=== PATIENT | female | born 1990 | race Caucasian/White ===

== ENCOUNTER 2017-05-09 11:25 | Emergency (ER) | payer OTHER ==
[2017-05-09 11:52] VITALS: BP 140/53; PULSE 112; TEMP 100.2; BMI 31.4
--- NOTE | 2017-05-09 12:48 | PDOC ---
History of Present Illness - General Chief Complaint: Respiratory Stated Complaint: FEVER, DIZZINESS Time Seen by Provider: 05/09/17 12:35 History Source: Patient, Family Exam Limitations: No Limitations - History of Present Illness Initial Comments: 05/09/17 12:44 Patient came for evaluation of 2-3 days of low-grade fevers and infrequent nonproductive cough, and lower abdominal pain. Denies dysuria and states that pain is spasmodic. Has taken no medication for relief Timing/Duration: reports: just prior to arrival Severity: reports: moderate Past History - Travel Traveled outside of the country in the last 30 days: No Close contact w/someone who was outside of country & ill: No - Past Medical History Allergies/Adverse Reactions: Allergies Allergy/AdvReac Type Severity Reaction Status Date / Time No Known Allergies Allergy Verified 05/09/17 11:49 Home Medications: Ambulatory Orders NK [No Known Home Medication] 05/09/17 Other medical history: Denies - Immunization History Immunization Up to Date: Yes - Psycho/Social/Smoking Cessation Hx Suicidal Ideation: No Smoking History: Never smoked Have you smoked in the past 12 months: No Information on smoking cessation initiated: No Hx Alcohol Use: No Drug/Substance Use Hx: No Substance Use Type: None Review of Systems - Review of Systems Able to Perform ROS?: Yes Is the patient limited Citizen [place] proficient: Yes Constitutional: Yes: Symptoms Reported, See HPI, Fever, Malaise. No: Loss of Appetite HEENTM: Yes: Symptoms Reported, See HPI, Nose Congestion, Throat Pain Respiratory: Yes: Symptoms reported, See HPI, Cough : No: Symptoms Reported Musculoskeletal: Yes: Symptoms Reported, See HPI Integumentary: Yes: Symptoms Reported All Other Systems: Reviewed and Negative *Physical Exam - Vital Signs Last Vital Signs Temp Pulse Resp BP Pulse Ox 100.2 F H 112 H 16 140/53 100 05/09/17 11:48 05/09/17 11:48 05/09/17 11:48 05/09/17 11:48 05/09/17 11:48 - Physical Exam General Appearance: Yes: Nourished, Appropriately Dressed, Apparent Distress HEENT: positive: MAI, TMs Normal, Pharynx Normal (redness, swelling or exudate) , Rhinorrhea (clear), Sinus Tenderness (mild ) Neck: positive: Supple. negative: Lymphadenopathy (R), Lymphadenopathy (L) Respiratory/Chest: positive: Lungs Clear Gastrointestinal/Abdominal: positive: Soft. 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 intact, Fully Oriented, Normal Response, Motor Strength 5/5 Progress Note - Progress Note Progress Note: Rest, drink lots of fluids: Teas, water, soups, Pedialyte Saltwater gargles Steamy showers/seem to face break up mucus Avoid contact with others until fevers and cough resolved Lots of handwashing and good hygiene Continue [id number] medications for symptomatic relief Tylenol or Motrin for fever and pain Followup with private physician in one to 2 days as needed Return to emergency department for worsened symptoms, fevers, dehydration *DC/Admit/Observation/Transfer Diagnosis at time of Disposition: Viral upper respiratory illness - Discharge Dispostion Disposition: HOME Condition at time of disposition: Stable Admit: No - Referrals Referrals: Paco Wellington [Primary Care Provider] - - Patient Instructions Printed Discharge Instructions: DI for Viral Upper Respiratory Infection -- Adult Additional Instructions: Rest, drink lots of fluids: Teas, water, soups, Pedialyte Saltwater gargles Steamy showers/seem to face break up mucus Avoid contact with others until fevers and cough resolved Lots of handwashing and good hygiene Continue [id number] medications for symptomatic relief Tylenol or Motrin for fever and pain Followup with private physician in one to 2 days as needed Return to emergency department for worsened symptoms, fevers, dehydration - Post Discharge Activity Work/School Note: Back to Work
[2017-05-09] MEDS ORDERED: IBUPROFEN 400 MG TABLET (FP) PO ONE ×2 (12:50→12:55)
[2017-05-09 13:12] LABS: URINE APPEARANCE CLEAR; URINE BILIRUBIN NEGATIVE (NEGATIVE); URINE BLOOD NEGATIVE (NEGATIVE); URINE COLOR YELLOW; URINE GLUCOSE (UA) NEGATIVE (NEGATIVE); URINE KETONE NEGATIVE (NEGATIVE); URINE LEUK ESTERASE NEGATIVE (NEGATIVE); URINE NITRITE NEGATIVE (NEGATIVE); URINE PROTEIN NEGATIVE (NEGATIVE); URINE UROBILINOGEN NEGATIVE mg/dL (0.2-1.0)
== END 2017-05-09 13:46 | disposition home or self-care (01) ==
LOC: JERFT 11:25
DX: J06.9 Acute upper respiratory infection, unspecified (principal); B97.89 Other viral agents as the cause of diseases classified elsewhere
CPT/HCPCS: 81003; 84703; 99281-25

== ENCOUNTER 2019-04-20 11:06 | Emergency (ER) | payer OTHER ==
[2019-04-20 11:14] VITALS: BP 138/75; PULSE 97; TEMP 99.3; BMI 27.4
[2019-04-20] MEDS ORDERED: ONDANSETRON 4 MG/2 ML VIAL IVPUSH ONE (12:18)
[2019-04-20] MEDS ORDERED: SODIUM CHLORIDE 0.9% 1000 ML INFUS.BAG IV ONE (12:18)
--- NOTE | 2019-04-20 12:18 | PDOC ---
History of Present Illness - General Chief Complaint: Nausea/Vomiting Stated Complaint: ABD. PAIN History Source: Patient Exam Limitations: No Limitations - History of Present Illness Initial Comments: 04/20/19 12:15 28-year-old female no past medical history here today complaining of upper abdominal discomfort and diarrhea. Patient states her symptoms started yesterday evening she describes 7 episodes of nonbloody watery stool. Has had mild nausea but no vomiting. Denies dysuria hematuria or other urinary complaints. No fevers no chills. No travel. No antibiotic use recently. No sick contacts. Does not take any prescription medications. Only prior abdominal surgery is 8 years ago Past History - Past Medical History Allergies/Adverse Reactions: Allergies Allergy/AdvReac Type Severity Reaction Status Date / Time No Known Allergies Allergy Verified 04/20/19 11:14 Home Medications: Ambulatory Orders NK [No Known Home Medication] 05/09/17 COPD: No - Immunization History Immunization Up to Date: Yes - Suicide/Smoking/Psychosocial Hx Smoking History: Never smoked Have you smoked in the past 12 months: No Hx Alcohol Use: No Drug/Substance Use Hx: No Substance Use Type: None Review of Systems - Review of Systems Constitutional: No: Chills, Diaphoresis, Fever HEENTM: No: Eye Pain Respiratory: No: Cough, Orthopnea Cardiac (ROS): No: Chest Pain, Edema ABD/GI: Yes: Diarrhea, Nausea. No: Constipated, Vomiting : No: Burning, Dysuria, Discharge All Other Systems: Reviewed and Negative *Physical Exam - Vital Signs Last Vital Signs Temp Pulse Resp BP Pulse Ox 99.3 F 97 H 16 138/75 98 04/20/19 11:12 04/20/19 11:12 04/20/19 11:12 04/20/19 11:12 04/20/19 11:12 - Physical Exam Comments: 04/20/19 12:17 Awake alert notes distress lungs are clear bilaterally heart is regular with any murmurs rubs or gallops abdomen is soft there is mild epigastric left upper quadrant tenderness to palpation no rebound no guarding bilateral lower quadrants are nontender. No CVA tenderness. Extremities are warm and well- perfused. Skin is warm and dry without rash neurologically the patient is alert and oriented 3 ED Treatment Course - LABORATORY CBC & Chemistry Diagram: 04/20/19 12:34 04/20/19 12:34 Medical Decision Making - Medical Decision Making 04/20/19 12:17 28-year-old female here with diarrhea and nausea mild epigastric tenderness on palpation. Differential diagnosis includes colitis, viral gastroenteritis pancreatitis gastritis. Plan basic labs IV fluids antacid and antinausea medication. We'll also obtain a UA and UCG to rule out 04/20/19 16:44 pt feels improved following meds. labs unremarkable will dc home likely viral GE. *DC/Admit/Observation/Transfer Diagnosis at time of Disposition: Enteritis - Discharge Dispostion Disposition: HOME Condition at time of disposition: Improved Decision to Admit order: No - Referrals - Patient Instructions Printed Discharge Instructions: Viral Gastroenteritis Additional Instructions: you should take a bland diet. drink plenty of liquids. for persistant diarrhea, or fever or abdomminal pain you should return for repeat evaluation. you should follow up with a supervisor phosphoric acid see referral information for dr Lea call to schedule. you should also see your primary doctor. - Post Discharge Activity
[2019-04-20] MEDS ORDERED: FAMOTIDINE 20 MG/50 ML IVPB 20 MG/50 ML MG IVPB ONE ×2 (12:19→12:49)
[2019-04-20] MEDS ORDERED: ONDANSETRON 4 MG/2 ML VIAL ONE (12:49)
[2019-04-20 12:51] LABS: BASO % 0.2 % (0-2.0); EOS % 0.6 % (0-4.5); HEMATOCRIT 37.1 % (32.4-45.2); HEMOGLOBIN 12.3 GM/dL (10.7-15.3); LYMPH % 8.3 % (8-40); MCH 29.6 pg (25.7-33.7); MCHC 33.1 g/dl (32.0-36.0); MEAN CELL VOLUME 89.4 fl (80-96); MEAN PLT VOLUME 8.4 fl (7.5-11.1); MONO % 4.5 % (3.8-10.2); NEUT % 86.4 % (42.8-82.8); PLATELET COUNT 203 K/MM3 (134-434); RBC 4.15 M/mm3 (3.60-5.2); RDW 15.1 % (11.6-15.6); WHITE BLOOD COUNT 5.9 K/mm3 (4.0-10.0)
[2019-04-20 13:24] LABS: PH,URINE 5.5 (5.0-8.0); URINE APPEARANCE CLEAR; URINE BILIRUBIN NEGATIVE (NEGATIVE); URINE COLOR YELLOW; URINE GLUCOSE (UA) NEGATIVE (NEGATIVE); URINE KETONE TRACE (NEGATIVE); URINE LEUK ESTERASE NEGATIVE (NEGATIVE); URINE NITRITE NEGATIVE (NEGATIVE); URINE PROTEIN NEGATIVE (NEGATIVE); URINE UROBILINOGEN 0.2 mg/dL (0.2-1.0)
[2019-04-20 13:25] LABS: HCG,QUALITATIVE URINE Negative
[2019-04-20 13:27] LABS: ALBUMIN 3.2 g/dl (3.4-5.0); BILIRUBIN,TOTAL 0.5 mg/dL (0.2-1); BLOOD UREA NITROGEN 7.3 mg/dL (7-18); CALCIUM 8.8 mg/dL (8.5-10.1); CREATININE 0.7 mg/dL (0.55-1.3); POTASSIUM 4.3 mmol/L (3.5-5.1); TOT PROT 6.6 g/dl (6.4-8.2)
== END 2019-04-20 17:10 | disposition home or self-care (01) ==
LOC: JER 11:06 → JERFT 11:06 → JER 17:10
PROC: 3E033GC Introduction of Other Therapeutic Substance into Peripheral Vein, Percutaneous Approach (ICD-10-PCS; principal; 2019-04-20)
PROC: 3E033GC Introduction of Other Therapeutic Substance into Peripheral Vein, Percutaneous Approach (ICD-10-PCS; 2019-04-20)
PROC: 3E0337Z Introduction of Electrolytic and Water Balance Substance into Peripheral Vein, Percutaneous Approach (ICD-10-PCS; 2019-04-20)
DX: K52.9 Noninfective gastroenteritis and colitis, unspecified (principal)
CPT/HCPCS: 36415; 80053; 81003; 83690; 84703; 85025; 96365; 96375; 99282-25; J7030